=== PATIENT | male | born 1985 | race Caucasian/White ===

== ENCOUNTER 2018-02-04 01:40 | Emergency (ER) | payer MEDICAID, OTHER ==
[~2018-02-04] VITALS: Ht 172.7 cm; Wt 82.6 kg
[~2018-02-04 01:40] MED LIST: IBUPROFEN600 MG ORAL
[2018-02-04 01:50] VITALS: BP 124/82
[2018-02-04 02:50] VITALS: BP 120/79
[2018-02-04 04:00] VITALS: BP 122/80
[2018-02-04] MEDS ORDERED: Ciprofloxacin 500mg tab ORAL ONE (04:30)
--- NOTE | 2018-02-04 04:38 | Emergency Room Report ---
History of Present Illness General Chief Complaint: Earache Source: Patient Present Illness HPI Patient presents with 8 weeks of L ear pain and decreased hearing. This has worsened over the last 2 days. Pain now rated at 8/10. Took 600 mg motrin 1 hour before presentation. No trauma. Has been cleaning the canal vigorously to try to help. Pain when ear is touched. In addition, he complains of headache. Now band-like across forehead. Has these frequently. Worsened with fasting. After fasting, has episode of vomiting and some epigastric discomfort (more burning) which is transient. Worried about fasting for Laura Taylor. Father with h/o similar headaches. No prior eval for the headaches. No weakness or tingling. No blood thinners. He takes motrin or tylenol 3 days a week. Post nasal drip problems. Stress with job. Headache worsened with increased stress. No nausea with this pain. No vomit recently. No rashes. H/O eczema. 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 No mastoid tenderness. Unable to visualize TM due to swelling. No discharge Neck: full range of motion, supple, no meningismus Respiratory: chest non-tender, lungs clear, normal breath sounds, no respiratory distress, speaking full sentences Cardiovascular #1: regular rate, rhythm Cardiovascular #2: 2+ radial (L) Gastrointestinal: normal inspection, normal bowel sounds Musculoskeletal: back normal, digits/nails normal, gait/station normal, normal range of motion, no calf tenderness Neurologic: alert, oriented x3, medical lab director III-XII nml as tested - decreased hearing L (finger snap), motor strength/tone normal, DTRs symmetric, sensory intact, cerebellar normal, normal gait, speech normal Psychiatric: mood/affect normal - slightly depressed Skin: no rash Medical Decision Making Diagnostic Impression: Primary Impression: Otitis externa Qualified Codes: H60.312 - Diffuse otitis externa, left ear Additional Impression: Headache Qualified Codes: R51 - Headache ER Course Patient with ear pain and headache - 8 weeks but recently worsened. DDx; OM, OE , cholesteatoma, tension CARTER, CARTER from ear inflammation amongst others. Neurologic exam normal. History is most consistent with OE with pain and recurrent headaches, now worsened by OE. Imaging not indicated at this time. No evidence of perforation, however, poor visualization of TM. Antibiotics and analgesics indicated. Ear wick planned and topical antibiotics. Treated with tylenol here (he drove self and took Motrin). Unable to get otic antibiotics - therefore, unable to use ear wick. (Multiple calls.) Cipro given as one dose until able to fill Rx for Ciprodex. Pain improved. Discussed need for PMD and evaluation by ENT - of acute problem and other chronic issues. Also discussed plan for pre-hydrating for fast and rx for zofran and use of pepcid. (If perforation, antibiotic will help. If cholesteatoma, will be able to evaluate TM better with resolution of canal edema.) Patient stable for outpatient observation and treatment. Last Vital Signs Date Time Temp Pulse Resp B/P (MAP) Pulse Ox O2 Delivery O2 Flow Rate FiO2 02/04/18 05:05 97.5 72 18 122/80 99 Room Air 97.5 Status: improved Disposition: HOME, SELF-CARE Condition: Improved Scripts Tramadol Hcl* (ULTRAM*) 50 Mg Tablet 50 MG ORAL Q6H PRN for For Pain, #10 TAB 0 Refills Prov: Hair Coronel M.D. 02/04/18 Ciprofloxacin Hcl/Dexameth (CIPRODEX OTIC SUSPENSION) 7.5 Ml Drops.susp 4 DROP LEFT EAR TWICE A DAY for 7 Days, ML Prov: Hair Coronel M.D. 02/04/18 Ibuprofen* (MOTRIN*) 600 Mg Tablet 600 MG ORAL Q6H PRN for For Pain, #20 TAB Prov: Hair Coronel M.D. 02/04/18 Ondansetron Odt* (ZOFRAN ODT*) 4 Mg Tab.rapdis 4 MG BC EVERY 8 HOURS, #6 TAB 1 Refill Prov: Hair Coronel M.D. 02/04/18 Referrals: NON PHYSICIAN (PCP) Hair Coronel M.D. Feb 04, 2018 04:38
[2018-02-04] MEDS ORDERED: CIPRODEX OTIC7.5 M1 LEFT EAR (04:52)
[2018-02-04] MEDS ORDERED: ONDANSETRON ODT4 MG BC (04:52)
[2018-02-04] MEDS ORDERED: IBUPROFEN600 MG ORAL (04:52)
[2018-02-04] MEDS ORDERED: TRAMADOL HCL50 MG ORAL (04:56)
[2018-02-04 05:05] VITALS: BP 122/80
== END 2018-02-04 05:09 | disposition home or self-care (01) ==
LOC: EMR 02:39
DX: H60.312 Diffuse otitis externa, left ear (principal); R51 Headache; H91.92 Unspecified hearing loss, left ear; R10.13 Epigastric pain; R11.10 Vomiting, unspecified
CPT/HCPCS: 99283